=== PATIENT | male | born 1950 | race Hispanic/Latino ===

== ENCOUNTER 2021-10-25 11:42 | Inpatient (IN) | payer OTHER, MEDICARE ==
[~2021-10-25 11:42] MED LIST: Iopamidol 300 61% 100 ML VIAL FS ONE
[2021-10-25 12:23] LABS: #Monocytes 0.8 10x3/uL (0.0-1.1); #Neutrophils 5.4 10x3/uL (1.5-8.4); %Basophils 0.6 % (0.0-2.0); %Eosinophils 0.6 % (0.0-6.0); %Lymphocytes 11.4 % (18.0-47.0); %Neutrophils 76.1 % (40.0-75.0); Hemoglobin 12.8 g/dL (13.5-17.5); Mean Corpuscular HGB CONC 35.5 g/dL (32.0-36.0); Mean Corpuscular Hemoglobin 31.3 pg (27.0-33.0); Mean Corpuscular Volume 88.3 fl (81.2-95.1); Platelet Count 113 10x3/uL (150-450); RBC Distribution Width 15.9 % (11.5-14.5); Red Blood Cell (RBC) Count 4.09 10x6/uL (4.32-5.72); White Blood Cell (WBC) Count 7.1 10x3/uL (3.5-10.5)
[2021-10-25 12:40] LABS: ALT (SGPT) 1226 U/L (8-55); AST (SGOT) 859 U/L (5-34); Albumin 3.5 g/dL (3.4-4.8); Alkaline Phosphatase 196 U/L (40-110); Anion Gap 16 mmol/L (10-20); BUN (Urea Nitrogen) 17 mg/dL (8.4-25.7); Bilirubin, Total 14.9 mg/dL (0.2-1.2); Calc. Creatinine Clearance 0 mL/min (70-130); Calcium 8.8 mg/dL (7.8-10.44); Carbon Dioxide 19 mmol/L (23-31); Chloride 104 mmol/L (98-107); Globulin 2.7 g/dL (2.4-3.5); Glucose 227 mg/dL (83-110); Potassium 4.1 mmol/L (3.5-5.1); Protein, Total 6.2 g/dL (5.8-8.1); Sodium 135 mmol/L (136-145)
[2021-10-25 12:56] LABS: Acetaminophen Less than 10.0 mcg/mL (10.0-30.0); Alcohol Less than 10 mg/dL (Less than 10); Salicylate Less than 8.0 mg/dL (15.0-30.0)
[2021-10-25 13:31] LABS: INR-International Normal Ratio 1.3; PTT 32.2 sec (22.0-33.0); Prothrombin Time 14.6 sec (9.5-12.1)
[2021-10-25 16:03] LABS: Troponin I 0.032 ng/mL (< 0.028)
[2021-10-25] MEDS ORDERED: Ondansetron ODT 4 MG TAB PO PRN (17:33)
[2021-10-25] MEDS ORDERED: Ondansetron PF 4 MG/2 ML Vial IVP PRN (17:33)
[2021-10-25 17:41] VITALS: BMI 51.0
[2021-10-25] MEDS ORDERED: Dextrose 5% in Water 1,000 ML IV PRN (17:42)
[2021-10-25] MEDS ORDERED: Dextrose 50% Abboject 50 ML SYRINGE SLOW IVP PRN (17:42)
[2021-10-25] MEDS ORDERED: HumaLOG 300 UNITS/3 ML VIAL SC PRN (17:42)
[2021-10-25] MEDS ORDERED: Lisinopril 10 MG TAB PO SCH (17:45)
[2021-10-25 18:11] LABS: Amphetamine Not Detected (NotDetected); Barbiturates Screen Not Detected (NotDetected); Benzodiazepine Screen Not Detected (NotDetected); Cocaine Metabolite Screen Not Detected (NotDetected); Methadone Not Detected (NotDetected); Methamphetamine Not Detected (NotDetected); Opiate Screen Not Detected (NotDetected); Oxycodone Screen Not Detected (NotDetected); Phencyclidine (PCP) Not Detected (NotDetected); THC/Cannabinoid Screen Not Detected (NotDetected); Tricyclic Screen Not Detected (NotDetected)
[2021-10-25] MEDS: hydrALAZINE 20 MG/ML VIAL SLOW IVP PRN (18:35)
[2021-10-25] MEDS ORDERED: Pantoprazole 40 MG VIAL IVP SCH (19:45)
[2021-10-25 20:09] LABS: Bilirubin 3+ (Negative); Blood, Urine Negative (Negative); Clarity Clear (Clear); Glucose, Urine (Dipstick) 250 mg/dL (Negative); Ketone, Urine Negative (Negative); Leukocyte Negative (Negative); Nitrite Negative (Negative); Protein, Urine (Dipstick) 30 mg/dl (Neg-Trace); Specific Gravity, Urine 1.015 (1.002-1.036)
[2021-10-25 20:33] LABS: Urine Culture Reflex No No
[2021-10-25 20:34] LABS: RBC/HPF 0-3 HPF (0-3)
[2021-10-25 20:35] LABS: Bacteria/HPF Rare-Few HPF (None Seen); Squamous Epithelial 0-3 HPF (0-3); Transitional Epithelial 0-3 HPF (None Seen); WBC/HPF 0-3 HPF (0-3)
[2021-10-25] MEDS ORDERED: Atorvastatin Calcium 40 MG TAB PO SCH (21:00)
[2021-10-25] MEDS ORDERED: Thiamine HCl 200 MG/2 ML VIAL SLOW IVP SCH (21:00)
[2021-10-25] MEDS ORDERED: Multivitamins, Adult 10 ML, Folic Acid 1 MG in Dextrose 5 %-0.45 % NaCl 1,000 ML IV SCH (21:00)
[2021-10-26] MEDS: hydrALAZINE 20 MG/ML VIAL SLOW IVP PRN (03:01)
[2021-10-26 04:05] LABS: #Eosinphils 0.1 10x3/uL (0.0-0.5); #Monocytes 0.7 10x3/uL (0.0-1.1); #Neutrophils 3.1 10x3/uL (1.5-8.4); %Basophils 0.6 % (0.0-2.0); %Eosinophils 2.4 % (0.0-6.0); %Lymphocytes 14.7 % (18.0-47.0); %Monocytes 14.9 % (0.0-10.0); %Neutrophils 67.2 % (40.0-75.0); Hemoglobin 12.3 g/dL (13.5-17.5); Mean Corpuscular HGB CONC 35.2 g/dL (32.0-36.0); Mean Corpuscular Hemoglobin 30.7 pg (27.0-33.0); Mean Platelet Volume 10.7 fl (7.4-10.4); Red Blood Cell (RBC) Count 4.01 10x6/uL (4.32-5.72); White Blood Cell (WBC) Count 4.6 10x3/uL (3.5-10.5)
[2021-10-26 04:06] LABS: Platelet Count 110 10x3/uL (150-450)
[2021-10-26 04:15] LABS: INR-International Normal Ratio 1.4; Prothrombin Time 15.7 sec (9.5-12.1)
[2021-10-26 04:23] LABS: ALT (SGPT) 1048 U/L (8-55); AST (SGOT) 714 U/L (5-34); Albumin 3.1 g/dL (3.4-4.8); Alkaline Phosphatase 159 U/L (40-110); Anion Gap 13 mmol/L (10-20); BUN (Urea Nitrogen) 12 mg/dL (8.4-25.7); Calc. Creatinine Clearance 202 mL/min (70-130); Calcium 8.6 mg/dL (7.8-10.44); Carbon Dioxide 21 mmol/L (23-31); Cardiac Risk 10.3 (Less than 4.5); Chloride 106 mmol/L (98-107); Globulin 2.5 g/dL (2.4-3.5); Glucose 264 mg/dL (83-110); HDL Cholesterol 13 mg/dL (>60 Neg Risk); Iron 221 ug/dL (65-175); Iron Binding Capacity, Total 204 mcg/dL (261-462); LDL Cholesterol, Calculated 92 mg/dL; Lipase 187 U/L (8-78); Magnesium 1.4 mg/dL (1.6-2.6); Potassium 3.9 mmol/L (3.5-5.1); Protein, Total 5.6 g/dL (5.8-8.1); Sodium 136 mmol/L (136-145)
[2021-10-26 04:34] LABS: Cholesterol 134 mg/dl (< 200 Desired); Triglycerides 147 mg/dL (Less than 150)
[2021-10-26 04:39] LABS: Thyroid Stimulating Hormone 1.2314 uIU/mL (0.35-4.94)
[2021-10-26 05:09] LABS: Ferritin 3400.44 ng/mL (22-322)
[2021-10-26] MEDS: HumaLOG 300 UNITS/3 ML VIAL SC PRN ×2 (05:43→11:03)
[2021-10-26] MEDS ORDERED: Pantoprazole 40 MG VIAL IVP SCH (09:00)
[2021-10-26] MEDS ORDERED: Lisinopril 10 MG TAB PO SCH (09:00)
[2021-10-26 12:54] VITALS: BP 141/76; TEMP 98
[2021-10-26 13:04] LABS: Hemoglobin A1c 8.2 % (4.0-6.0)
[2021-10-26 13:21] LABS: HBCM Index 0.06 S/CO (0-0.79); HBSAg Index 0.22 S/CO (0-0.99); Hep A IgM AB Non-Reactive (NonReactive); Hep A IgM S/CO 0.16 S/CO (0-0.79); Hep B Surf Ag Non-Reactive S/CO (NonReactive); Hep C IgG Ab Non-Reactive (NonReactive); Hep C Index 0.09 S/CO (0-0.79); Hepatitis B Core IgM Abs Non-Reactive (NonReactive)
[2021-10-26 16:01] LABS: SARS-CoV-2 PCR by NAA Not Detected (NotDetected)
[2021-10-27 15:15] LABS: ANA Symphony (Qualitative) Negative (Negative); ANA Symphony (Quantitative) 0.3 Ratio (< 0.7 Negative); EliA Vaculitis New Method **** NEW METHOD ****; Mitochondrial Ab 0.9 U/mL (<4 Negative); dsDNA IgG Antibody 0.9 IU/mL (<10 Negative)
[2021-10-28 14:12] LABS: Smooth Muscle Total ABS 7 Units (0-19)
[2021-10-30 15:17] LABS: Alpha-1-Antitrypsin 141 mg/dL (101-187)
== END 2021-10-26 16:20 | disposition home or self-care (01) | DRG 442 ==
LOC: CSHERS 11:42 → CSHTELE 17:23
PROVIDERS: ADMIT Internal Medicine; ATTEND Internal Medicine
DX: K72.00 Acute and subacute hepatic failure without coma (principal); Z68.43 Body mass index [BMI] 50.0-59.9, adult; I10 Essential (primary) hypertension; E78.5 Hyperlipidemia, unspecified; E11.9 Type 2 diabetes mellitus without complications; E66.01 Morbid (severe) obesity due to excess calories; D69.6 Thrombocytopenia, unspecified; Z20.822 Contact with and (suspected) exposure to COVID-19; Z90.49 Acquired absence of other specified parts of digestive tract; Z79.899 Other long term (current) drug therapy
CPT/HCPCS: 36415; 36416; 70450; 71045; 74177; 76705; 80053; 80061; 80074; 80306; 80307; 81001; 81256; 82103; 82104; 82140; 82150; 82390; 82607; 82728; 82746; 83036; 83516; 83540; 83550; 83690; 83735; 84443; 84484; 85025; 85610; 85730; 86015; 86038; 86225; 87040; 93005; 94760; C9113; J0360; J3411; J7042; Q9967; U0003; U0005